=== PATIENT | male | born 1990 | race Two or more races ===

== ENCOUNTER 2019-10-16 09:49 | Inpatient (IN) | payer OTHER ==
[~2019-10-16] VITALS: Ht 170.2 cm; Wt 49.9 kg
--- NOTE | 2019-10-16 10:18 | NUR ---
PACIENTE MASCULINO ALERTA Y ORIENTADO. REFIERE TENER DOLOR EN EL TESTICULO LT. PRESENTO NAUSEAS Y VOMITOS AMARILLOS X2. LOS SINTOMAS ESTAN PRESENTE DESDE HACEN 2 BON[address]. AREA DEL TESTICULO NORMAL A [facility] VISTA.
--- NOTE | 2019-10-16 11:38 | NUR ---
AIDAN LEE DENY MUESTRAS DE ARTHUR BAJO MEDIDAS ASEPTICAS, ADMINISTRA MEDICAMENTO BAJO MEDIDAS ASEPTICAS PARTHA ORDEN MEDICA, ORIENTA A PACIENTE SOBRE PROCEDIMIENTO Y MEDICACION VERBALIZA ENTENDER.
[2019-10-18] MEDS ORDERED: CIPRO500 MG PO (10:07)
[2019-10-18] MEDS ORDERED: FLAGYL500MG PO (10:08)
[2019-10-18] MEDS ORDERED: INTESTINEX680 M1 PO (10:08)
== END 2019-10-18 11:01 | disposition home or self-care (01) | DRG 866 ==
LOC: ER 09:49 → SEC-K 16:06 → MEDI 19:21
PROVIDERS: ADMIT Internal Medicine
PROC: BW21ZZZ Computerized Tomography (CT Scan) of Abdomen and Pelvis (ICD-10-PCS; principal; 2019-10-16)
PROC: BV44ZZZ Ultrasonography of Scrotum (ICD-10-PCS; 2019-10-17)
DX: J11.2 Influenza due to unidentified influenza virus with gastrointestinal manifestations (principal); J00 Acute nasopharyngitis [common cold]